=== PATIENT | female | born 1960 | race American Indian/Alaskan Native ===

== ENCOUNTER 2021-06-23 08:16 | Outpatient (CLI) | payer BC ==
[2021-06-23] MEDS ORDERED: REGADENOSON 0.4 MG/5 ML INJ IV ONE ×2 (10:37→10:41)
[2021-06-23 11:19] VITALS: BP 157/73
--- NOTE | 2021-06-24 15:19 | Treadmill Report ---
DATE OF SERVICE: 06/23/2021 NUCLEAR STRESS TEST REFERRING PHYSICIAN: Dr. Mcmillan. PROTOCOL: The patient was assessed in postoperative state given 10 mCi of technetium at rest. The patient had rest imaging. The patient underwent Lexiscan stress test per standard protocol. At peak stress, the patient given 26 mCi technetium. Shortly thereafter, the patient had stress imaging. Raw imaging reveals mild GI artifact, no significant motion effect. SPECT imaging examined carefully in horizontal long axis, vertical long axis, short axis views. There was normal homogeneous uptake of radioisotope in all port segments. No evidence of significant fixed or reversible perfusion defect suggestive of prior infarction or ischemia. Gated wall motion reveals normal systolic thickening, calculated ejection fraction of 60%. No TID. CONCLUSIONS: 1. Normal myocardial perfusion scan without evidence of active ischemia or prior infarction. 2. Normal left ventricular systolic performance without evidence of transient ischemic dilatation or stress induced segmental wall motion abnormalities. TID: [id number] RECEIPT: [id number] [facility]
== END 2021-06-23 08:17 | disposition home or self-care (01) ==
LOC: ECHO 08:16
PROVIDERS: ATTEND Internal Medicine
DX: I07.1 Rheumatic tricuspid insufficiency (principal); R07.89 Other chest pain; E11.9 Type 2 diabetes mellitus without complications; I10 Essential (primary) hypertension
CPT/HCPCS: 78452; 93017; 93306; A9502; J2785